=== PATIENT | male | born 1985 | race Caucasian/White ===

== ENCOUNTER 2016-07-31 07:19 | Outpatient (CLI) | payer MEDICAID | END 2016-07-31 07:20 | disposition home or self-care (01) | DX: R42 Dizziness and giddiness (principal); Z83.49 Family history of other endocrine, nutritional and metabolic diseases ==

== ENCOUNTER 2016-08-13 16:34 | Outpatient (CLI) | payer MEDICAID | END 2016-08-13 16:35 | disposition home or self-care (01) | DX: M54.2 Cervicalgia (principal) ==

== ENCOUNTER 2017-11-29 08:00 | Outpatient (CLI) | payer MEDICAID | END 2017-11-29 08:01 | disposition home or self-care (01) | LOC: LAB.R 08:00 | PROVIDERS: ATTEND Physician Assistant Medical | DX: N50.811 Right testicular pain (principal) | CPT/HCPCS: 87086 ==

== ENCOUNTER 2018-01-11 10:04 | Outpatient (CLI) | payer MEDICAID ==
--- NOTE | 2018-01-11 10:25 | XRAY Report ---
Procedure Date: 01/11/2018 Accession Number: [id number] / [id number] Procedure: XRN - Chest 2 View X-Ray CPT Code: 38105 FULL RESULT: EXAM: Chest 2 View X-Ray DATE: 01/11/2018 10:15 AM CLINICAL HISTORY: DYSPNEA COMPARISON: None. TECHNIQUE: 2 views. FINDINGS: Lungs/Pleura: No focal opacities evident. No pneumothorax or pleural effusion. Normal volumes. Mediastinum: Heart and mediastinal contours are unremarkable. Other: None. IMPRESSION: Normal 2-view chest radiography. RADIA
== END 2018-01-11 10:05 | disposition home or self-care (01) ==
LOC: DI.N 10:04
PROVIDERS: ATTEND Family Medicine
DX: R06.00 Dyspnea, unspecified (principal)
CPT/HCPCS: 71046

== ENCOUNTER 2018-11-21 11:05 | Outpatient (CLI) | payer SELFPAY ==
[2018-11-21 13:44] LABS: BILIRUBIN,URINE NEGATIVE (NEGATIVE); GLUCOSE, URINE (UA) NEGATIVE (NEGATIVE); KETONES,URINE (UA) NEGATIVE (NEGATIVE); LEUKOCYTE ESTERASE, URINE NEGATIVE (NEGATIVE); NITRITE,URINE NEGATIVE (NEGATIVE); OCCULT BLOOD,URINE NEGATIVE (NEGATIVE); PH,URINE 6.5 PH (5.0-7.5); PROTEIN,URINE NEGATIVE (NEGATIVE); UROBILINOGEN,URINE 0.2 (NORMAL) E.U./dL (NORMAL)
[2018-11-21 13:47] LABS: CLARITY,URINE CLEAR (CLEAR)
[2018-11-21 13:51] LABS: BACTERIA,URINE None Seen /HPF (None Seen); RBC,URINE None Seen /HPF (0-5); SQUAMOUS EPITHELIAL CELL,UR NONE SEEN (<= Few)
== END 2018-11-21 23:59 | disposition home or self-care (01) ==
LOC: LAB.R 11:05
PROVIDERS: ATTEND Physician Assistant Medical
DX: R36.9 Urethral discharge, unspecified (principal)
CPT/HCPCS: 81001; 87491; 87591

== ENCOUNTER 2021-01-03 08:23 | Outpatient (CLI) | payer OTHER | END 2021-01-03 08:24 | disposition critical access hospital (66) | LOC: EMS 08:23 | DX: S80.211A Abrasion, right knee, initial encounter (principal); M25.521 Pain in right elbow; V28.4XXA Motorcycle driver injured in noncollision transport accident in traffic accident, initial encounter; Y93.55 Activity, bike riding | CPT/HCPCS: A0425; A0429 ==

== ENCOUNTER 2021-01-03 08:43 | Emergency (ER) | payer OTHER ==
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
[2021-01-03 11:05] VITALS: BP 145/107
== END 2021-01-03 11:05 | disposition home or self-care (01) ==
LOC: EDUNIT# → ED 08:43
DX: S16.1XXA Strain of muscle, fascia and tendon at neck level, initial encounter (principal); S50.311A Abrasion of right elbow, initial encounter; S80.211A Abrasion, right knee, initial encounter; S80.01XA Contusion of right knee, initial encounter; V28.0XXA Motorcycle driver injured in noncollision transport accident in nontraffic accident, initial encounter; Y92.410 Unspecified street and highway as the place of occurrence of the external cause
CPT/HCPCS: 99282; 99284